=== PATIENT | female | born 1965 | race Caucasian/White ===

== ENCOUNTER → 2022-10-24 09:30 | Outpatient (BNVA) | payer MEDICARE, MEDICAID, SELFPAY | PROVIDERS: PCP Family Medicine; Visit Provider Podiatrist Foot & Ankle Surgery | DX: G57.62 Lesion of plantar nerve, left lower limb | CPT/HCPCS: 73630; 99203 ==

== ENCOUNTER → 2022-11-02 09:18 | Outpatient (BNVA) | payer MEDICARE, MEDICAID, SELFPAY | PROVIDERS: PCP Family Medicine; Referring Provider Family Medicine; Visit Provider Internal Medicine Rheumatology | DX: Z79.899 Other long term (current) drug therapy (principal); M19.90 Unspecified osteoarthritis, unspecified site; Z11.59 Encounter for screening for other viral diseases; M06.9 Rheumatoid arthritis, unspecified; Z71.85 Encounter for immunization safety counseling | CPT/HCPCS: 80076; 82306; 82565; 85025; 86200; 86431; 86704; 86803; 87340; 87522; 99204 ==

== ENCOUNTER 2022-11-23 13:09 | Outpatient (CLI) | payer MEDICARE, MEDICAID, SELFPAY ==
--- NOTE | 2022-11-23 13:45 | MR_ITS ---
WS: [id number] MRI LEFT FOOT WITHOUT CONTRAST. COMPARISON: None Multiplanar, multisequence imaging is performed without contrast. On the axial proton density sequence there is an intermediate soft tissue mass centered between the t hird and fourth distal metatarsals. This is a dumbbell shaped mass extending into the plantar and jason ehsan surfaces of the soft tissues. Mass extends along the plantar surface of the foot posterior to the third metatarsal head. Intermediate and slightly increased signal on the T2 fat-saturated sequences. Mass is causing widening between the third and fourth metatarsal heads. Length of the mass is 3.7 cm and transversely by 1.6 cm. No marrow edema or fracture. There are small cortical erosions noted in the midfoot predominantly inv olving the proximal third metatarsal and the cuboid. Consistent with history of prior rheumatoid arth ritis. No erosions in the metatarsal heads. IMPRESSION: 1. Lobulated dumbbell shaped mass between the third and fourth metatarsal heads measures 1.6 x 3.7 cm . 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 Typically Simon neuromas are not this large. There are rare cases of marked enlargement. 2. Splaying of the third and fourth metatarsal heads due to this mass. 3. Small erosions in the proximal third metatarsal and the cuboid. Consistent with a history of rheum atoid arthritis.
== END 2022-11-23 13:10 | disposition home or self-care (01) ==
PROVIDERS: PCP Family Medicine; Visit Provider Podiatrist Foot & Ankle Surgery
DX: G57.62 Lesion of plantar nerve, left lower limb (principal)
CPT/HCPCS: 73718

== ENCOUNTER → 2022-11-27 14:56 | Outpatient (BNVA) | payer MEDICARE, MEDICAID, SELFPAY | PROVIDERS: PCP Family Medicine; Visit Provider Podiatrist Foot & Ankle Surgery | DX: G57.62 Lesion of plantar nerve, left lower limb | CPT/HCPCS: 99214 ==

== ENCOUNTER 2022-12-06 06:52 | Day surgery (SDC) | payer MEDICARE, MEDICAID, SELFPAY ==
[2022-12-06 07:14] VITALS: BP 123/71; PULSE 93; RESP 20; TEMP 36.1; O2SAT 96; BMI 24.9
[2022-12-06] MEDS: sodium chloride 0.9% 1,000 ML 30 ML IV (07:24)
[2022-12-06] MEDS: gabapentin 300 mg Capsule PO (07:27)
[2022-12-06] MEDS: CELEcoxib 200 mg Capsule 400 MG PO (07:27)
--- NOTE | 2022-12-06 08:22 | ANES.PREANE2 ---
Pre-Anesthetic Assessment Height/Weight: Height 1.73 m Weight 74.389 kg Temp Pulse Resp BP Pulse Ox O2 Del Method 97 F L 93 20 H 123/71 96 Room Air 12/06/22 07:14 12/06/22 07:14 12/06/22 07:14 12/06/22 07:14 12/06/22 07:14 12/06/22 07:14 Preop Diagnosis: Simon's Neuroma Left Foot Operation Date: 12/06/22 07:00 Proposed Procedures p ?Left foot third interspace neuroma excision 23985,G57.62(Left) - Gilberto Garcia DPM Familial anesthetic complications: None Was Beta Josiah taken within 24 hours: N/A Was Clonidine taken within 24 hours: N/A Last intake: Intake Last Liquid Date 12/05/22 Last Liquid Time 20:30 Last Solid Date 12/05/22 Last Solid Time 20:30 Social No alcohol and No tobacco Exam alert, oriented x 3, clear to auscultation bilaterally and regular rate & rhythm Airway Mallampati: Class II Dentition: full Pulmonary Sleep Apnea GI gastroparesis no current nausea or feeling of gastric fullness, states feels empty Metabolic Diabetes Mellitus [facility] Rheumatoid Arthritis Anesthetic Plan ASA status: 3 Anesthesia: MAC Risk of > 500 ml blood loss (7ml/kg in children): No Medications/Allergies Home Medications Medication Instructions Recorded Confirmed Last Taken Type dextroamphetamine-amphetamine 30 30 mg PO BID 11/02/22 12/06/22 12/05/22 History mg tablet (Adderall) gabapentin 300 mg capsule 300 mg PO TID 11/02/22 12/06/22 12/05/22 History leflunomide 20 mg tablet 20 mg PO DAILY 11/02/22 12/06/22 12/05/22 History metoclopramide HCl 5 mg tablet 5 mg PO DAILY 11/02/22 12/06/22 12/05/22 History sucralfate 1 gram tablet 1 g PO .before meals 11/02/22 12/06/22 12/05/22 History trazodone 100 mg tablet 200 mg PO .HS 11/02/22 12/06/22 12/05/22 History insulin syringes (disposable) 1 mL #25 ea 11/16/22 11/27/22 Unknown Rx methotrexate sodium 25 mg/mL 15 mg (0.6 mL) SUBCUT .Q7days #10 11/16/22 12/05/22 12/01/22 Rx injection solution mL aripiprazole 400 mg intramuscular See Rx Instructions .Route .COMPLEX 12/05/22 12/06/22 11/22/22 History suspension,extended release (Abilify Maintena) esomeprazole magnesium 20 mg 20 mg PO DAILY 12/05/22 12/06/22 12/05/22 History capsule,delayed release paroxetine HCl 20 mg tablet 20 mg PO DAILY 12/05/22 12/06/22 12/05/22 History Allergies Allergy/AdvReac Type Severity Reaction Status Date / Time acetaminophen Allergy Unknown Unknown Verified 12/05/22 10:36 ciprofloxacin [From Cipro] Allergy Unknown Unknown Verified 12/05/22 10:36 Penicillins Allergy Unknown Unknown Verified 12/05/22 10:36 pistachio nut Allergy Unknown Unknown Verified 12/05/22 10:36 Current Medications Generic Name Dose Route Start Last Admin Trade Name Freq PRN Reason Stop Dose Admin Sodium Chloride 1,000 mls @ 30 mls/hr 12/06/22 07:15 12/06/22 07:24 Sodium Chloride 0.9% IV 12/07/22 07:14 30 mls/hr .Q24H RAJAT Administration PFSH Anesthesia Medical History Adult ADHD Anxiety Chronic lower back pain Chronic post-traumatic stress disorder (PTSD) DDD (degenerative disc disease) Depression Dyspnea Gastroparesis High risk medication use History of heart valve disorder Immunization counseling Simon's neuroma of left foot Osteoarthritis Raynauds disease Rheumatoid arthritis Sleep apnea Tubal ligation evaluation Surgical History History of artificial heart valve History of delivery History of esophagogastroduodenoscopy (EGD) History of hysterectomy with bilateral oophorectomy Family History Other CAD (coronary artery disease) Cancer Diabetes Family history of premature coronary artery disease Hypertension Lung disease Lupus Rheumatoid arthritis Denies family history of Stroke Data Anesthesia Cardiac Studies: No Data to Display
--- NOTE | 2022-12-06 08:38 | W.PM.OPSUD ---
Surgery/Procedure H&P Update DATE OF PROCEDURE: December 06, 2022 DATE H&P PERFORMED: 11/27/22 CHANGES TO PREVIOUS DOCUMENTATION: No changes PREOP DIAGNOSIS: Simon's Neuroma Left Foot PLANNED PROCEDURE: Operation Date: 12/06/22 07:00 Proposed Procedures p ?Left foot third interspace neuroma excision 93245,G57.62(Left) - iGlberto Garcia DPM
[2022-12-06] MEDS: ceFAZolin 2,000 MG in sodium chloride 0.9% (plus) 50 ML 100 MG IV (09:02)
[2022-12-06] MEDS: BUPivacaine 0.5% INJ 30 mL INJECTION (09:04)
[2022-12-06 09:45] VITALS: BP 83/60; PULSE 73; RESP 18; TEMP 36.1; O2SAT 96
--- NOTE | 2022-12-06 09:45 | W.PM.BPON ---
Date of procedure: 12/06/22 Surgeon name: Laverne MarkPGustavo Tool Lapper Hand(s) name(s): None Procedure(s) performed: Left foot 3rd interspace neuroma excision Description of findings: Large neuroma left 3rd interspace Estimated blood loss: 10cc Specimen(s) removed: Neuroma left foot 3rd interspace sent to pathology Post-operative diagnosis: Neuroma left foot 3rd interspace
--- NOTE | 2022-12-06 09:49 | P.OP_ITS ---
Operative Report Date of procedure: December 06, 2022 Pre-op diagnosis: Left foot 3rd interspace neuroma Post-op diagnosis: Same Post-op findings: Whitish, yellowish discolored soft tissue mass from left third interspace measuring 2.0 x 2.5 cm that is longest and widest girth well-circumscribed no evidence of malignancy Procedure done: Left foot third interspace neuroma excision CPT 64674 Implants: None Specimens removed/disposition: Left foot third interspace neuroma sent to surgical pathology Surgeon: Gilberto Garcia DPM Estimated blood loss: Less than 10 cc Complications: None Findings: See above Procedure: Patient is a 57-year-old female that has a history of left foot third interspace neuroma. The patient has had the aforementioned chief complaint for some time. Conservative treatment measures have been attempted and the patient has opted for surgical intervention at this time. A lengthy discussion regarding the procedure, including risks and complications has been had with the patient and is noted in the recent clinic note. Written and verbal consent have been obtained. All patient questions have been answered to the patient?s satisfaction. No written or verbal guarantees have been given or implied. The patient has been NPO since midnight. The history has been reviewed and the history and physical is current. The signed consent was confirmed and placed in the patient chart. Patient imaging has been reviewed and is consistent with the diagnosis. Under mild sedation, the patient was brought into the operating room and placed on the table in the supine position. IV antibiotics were given by the anesthesia team as preoperative surgical prophylaxis. IV sedation was then performed by the anesthesiateam. A pneumatic tourniquet was then placed about the left ankle. The operative extremity was then prepped and draped in the usual fashion. The extremity was then elevated and exsanguinated before the tourniquet was inflated to 250 mmHg. After inflation, the following procedure was then performed. Attention was directed to the left foot overlying the third intermetatarsal space where a 3 cm incision was made using #15 blade. Blunt dissection was carried down through subcutaneous and superficial fascia to the level of a whitish, yellowish discolored soft tissue mass consistent with neuroma. Dissection was carried out circumferentially around the mass to expose it in its entirety. It was then transected as proximally as possible before the distal ends were traced and transected. This was then passed from the operative field. It was noted to measure 2.0 x 2.5 cm at its longest and widest girth. The site was evaluated and no remaining soft tissue mass was visualized. The site was irrigated with copious months of sterile saline before attention was directed to closure. Skin was closed with 4-0 nylon in horizontal mattress fashion. The tourniquet was let down and good hyperemic response was noted all digits of the left foot. The site was then dressed with Xeroform, 4 x 4 gauze, Kerlix, Coban The patient tolerated the procedure and anesthesia well and without complication. The patient was transported from the operating room to the recover y room with vital signs stable and vascular status intact to all digits of the left foot. The patient was given both written and verbal instructions to remain weightbearing as tolerated to the operative extremity, to keep dressings/splint clean, dry and intact and to take pain medication as directed. The patient will follow-up in the outpatient setting at their scheduled appointment. The patient was discharged with my personal number and was instructed to call if any questions or issues should arise. They were discharged home once anesthesia criteria was met.
[2022-12-06 09:50] VITALS: BP 91/55; PULSE 72; RESP 18; O2SAT 95
[2022-12-06 10:02] VITALS: BP 90/66; PULSE 71; RESP 18; TEMP 36.1; O2SAT 96
[2022-12-06 10:04] VITALS: BP 108/70; PULSE 78; RESP 16; TEMP 36.1; O2SAT 94
--- NOTE | 2022-12-06 10:10 | ANE.PACU2 ---
Inpatient post-anesthesia follow up: Airway intact: Yes Vital signs: Temperature 97.0 F Pulse Rate 78 Respiratory Rate 18 Blood Pressure 122/83 Pulse Oximetry 95 Oxygen Delivery Me thod Room Air Oxygen Flow Rate Fraction of Inspir ed Oxygen Hydration adequate: Yes Nausea and vomiting: No Pain level: 1 Mental status: Baseline
[2022-12-06] MEDS: TRAMadol 50 mg Tablet PO (10:19)
[2022-12-06 10:20] VITALS: BP 122/83; PULSE 78; RESP 18; O2SAT 95
== END 2022-12-06 10:34 | disposition home or self-care (01) ==
PROVIDERS: PCP Family Medicine; Visit Provider Podiatrist Foot & Ankle Surgery
PROC: (CPT 28080; principal; 2022-12-06 07:00)
DX: G57.62 Lesion of plantar nerve, left lower limb (principal); E11.9 Type 2 diabetes mellitus without complications; G47.30 Sleep apnea, unspecified; M06.9 Rheumatoid arthritis, unspecified; M19.90 Unspecified osteoarthritis, unspecified site
CPT/HCPCS: 28080; 88304; J0690; J2371; J2704; J3010; J3490; J7030; L3260

== ENCOUNTER → 2022-12-12 11:04 | Outpatient (BNVA) | payer MEDICARE, MEDICAID, SELFPAY | PROVIDERS: PCP Family Medicine; Visit Provider Podiatrist Foot & Ankle Surgery | DX: Z98.890 Other specified postprocedural states (principal); G57.62 Lesion of plantar nerve, left lower limb; M06.9 Rheumatoid arthritis, unspecified | CPT/HCPCS: 36415; 80076; 82565; 85025; 86140; 99024; 99214 ==

== ENCOUNTER → 2022-12-20 14:40 | Outpatient (BNVA) | payer MEDICARE, MEDICAID, SELFPAY | PROVIDERS: PCP Family Medicine; Visit Provider Podiatrist Foot & Ankle Surgery | DX: Z98.890 Other specified postprocedural states (principal); G57.62 Lesion of plantar nerve, left lower limb; M79.672 Pain in left foot | CPT/HCPCS: 99024 ==

== ENCOUNTER 2024-04-03 14:03 | Oncology outpatient (recurring) (ONCR) | payer OTHER, MEDICAID, SELFPAY ==
[2024-04-03 15:20] LABS: Basophils % 0.5 %; Eosinophils # 0.2 10^3/uL (0.0-0.8); Eosinophils % 2.2 %; Hematocrit 31.5 % (36-47); Lymphocytes # 1.8 10^3/uL (0.8-4.8); Lymphocytes % 21.5 %; Mean Corpuscular HGB Conc 32.4 g/dL (30-55); Mean Corpuscular Hemoglobin 28.6 pg (27-33); Mean Corpuscular Volume 88.2 fl (85-98); Mean Platelet Volume 8.7 fL (7.4-10.4); Monocytes # 0.4 10^3/uL (0.2-0.9); Monocytes % 4.5 %; Neutrophils % 70.9 %; Nucleated Red Blood Cells % 0 %; Platelet Count 283 10^3/cmm (157-399); Red Blood Count 3.57 10^6/uL (3.85-5.65); Red Cell Distribution Width 13.2 % (12.1-15.1); White Blood Count 8.31 10^3/uL (3.29-11.43)
[2024-04-03 15:40] LABS: Alanine Aminotransferase 17 U/L (0-33); Albumin Level 3.3 g/dL (3.5-5.2); Alkaline Phosphatase 115 U/L (35-105); Anion Gap 14.2 (5-19); Aspartate Amino Transferase 21 U/L (0-32); Blood Urea Nitrogen 11 mg/dL (8-23); Calcium 8.6 mg/dL (8.5-10.5); Carbon Dioxide 25 mmol/L (22-29); Chloride 102 mmol/L (98-107); Creatine Phosphokinase 178 U/L (26-192); Glucose 103 mg/dL (65-115); Osmolality Calculated 284 mOsm/kg (285-295); Potassium 4.2 mmol/L (3.5-5.1); Sodium 137 mmol/L (136-145); Total Bilirubin 0.2 mg/dL (0.15-1.2); Total Protein 6.3 g/dL (6.6-8.7)
== END 2024-04-04 23:59 | disposition home or self-care (01) ==
LOC: ONCMED 14:08
PROVIDERS: PCP Family Medicine; Visit Provider Orthopaedic Surgery
DX: T84.50XA Infection and inflammatory reaction due to unspecified internal joint prosthesis, initial encounter (principal); X58.XXXA Exposure to other specified factors, initial encounter
CPT/HCPCS: 36592; 80053; 82550; 85025

== ENCOUNTER 2024-04-28 14:41 | Oncology outpatient (recurring) (ONCR) | payer OTHER, MEDICAID, SELFPAY ==
[2024-04-10 14:41] LABS: Basophils % 0.5 %; Eosinophils # 0.2 10^3/uL (0.0-0.8); Eosinophils % 1.8 %; Lymphocytes # 2.1 10^3/uL (0.8-4.8); Mean Corpuscular HGB Conc 31.4 g/dL (30-55); Mean Corpuscular Hemoglobin 27.4 pg (27-33); Mean Corpuscular Volume 87.5 fl (85-98); Mean Platelet Volume 8.6 fL (7.4-10.4); Monocytes # 0.5 10^3/uL (0.2-0.9); Monocytes % 5.5 %; Neutrophils # 5.68 10^3/uL (1.8-7.7); Nucleated Red Blood Cells % 0 %; Platelet Count 457 10^3/cmm (157-399); Red Blood Count 4.23 10^6/uL (3.85-5.65); Red Cell Distribution Width 14.1 % (12.1-15.1); White Blood Count 8.48 10^3/uL (3.29-11.43)
[2024-04-10 15:02] LABS: Alanine Aminotransferase 12 U/L (0-33); Albumin Level 3.8 g/dL (3.5-5.2); Alkaline Phosphatase 127 U/L (35-105); Anion Gap 17.3 (5-19); Aspartate Amino Transferase 16 U/L (0-32); Blood Urea Nitrogen 11 mg/dL (8-23); Carbon Dioxide 24 mmol/L (22-29); Chloride 102 mmol/L (98-107); Creatine Phosphokinase 151 U/L (26-192); Globulin 3.6 g/dL (1.3-4.6); Glomerular Filtration Rate 85.4 mL/min (90-130); Glucose 109 mg/dL (65-115); Osmolality Calculated 290 mOsm/kg (285-295); Potassium 3.3 mmol/L (3.5-5.1); Sodium 140 mmol/L (136-145); Total Bilirubin 0.2 mg/dL (0.15-1.2); Total Protein 7.4 g/dL (6.6-8.7)
[2024-04-17 14:40] LABS: Basophils % 0.7 %; Eosinophils # 0.1 10^3/uL (0.0-0.8); Hematocrit 36.2 % (36-47); Lymphocytes # 1.7 10^3/uL (0.8-4.8); Lymphocytes % 30.6 %; Mean Corpuscular Volume 87.2 fl (85-98); Mean Platelet Volume 8.9 fL (7.4-10.4); Monocytes # 0.4 10^3/uL (0.2-0.9); Monocytes % 7.2 %; Neutrophils # 3.21 10^3/uL (1.8-7.7); Neutrophils % 59.3 %; Nucleated Red Blood Cells % 0 %; Platelet Count 345 10^3/cmm (157-399); Red Blood Count 4.15 10^6/uL (3.85-5.65); Red Cell Distribution Width 13.6 % (12.1-15.1); White Blood Count 5.42 10^3/uL (3.29-11.43)
[2024-04-17 14:57] LABS: Alanine Aminotransferase 14 U/L (0-33); Albumin Level 3.7 g/dL (3.5-5.2); Alkaline Phosphatase 119 U/L (35-105); Anion Gap 15.8 (5-19); Aspartate Amino Transferase 22 U/L (0-32); Blood Urea Nitrogen 15 mg/dL (8-23); C Reactive Protein 5.5 mg/L (0.0-4.9); Calcium 9.3 mg/dL (8.5-10.5); Carbon Dioxide 24 mmol/L (22-29); Chloride 100 mmol/L (98-107); Creatine Phosphokinase 102 U/L (26-192); Globulin 3.4 g/dL (1.3-4.6); Glomerular Filtration Rate 85.4 mL/min (90-130); Glucose 101 mg/dL (65-115); Osmolality Calculated 283 mOsm/kg (285-295); Potassium 3.8 mmol/L (3.5-5.1); Sodium 136 mmol/L (136-145); Total Bilirubin 0.2 mg/dL (0.15-1.2); Total Protein 7.1 g/dL (6.6-8.7)
[2024-04-17 15:14] LABS: Erythrocyte Sedimentation Rate 48 mm/hr (0-15)
[2024-04-28 15:31] LABS: Basophils % 0.7 %; Eosinophils # 0.1 10^3/uL (0.0-0.8); Eosinophils % 2.5 %; Hematocrit 36.4 % (36-47); Lymphocytes # 2.1 10^3/uL (0.8-4.8); Lymphocytes % 37.8 %; Mean Corpuscular HGB Conc 32.4 g/dL (30-55); Mean Corpuscular Hemoglobin 28.5 pg (27-33); Mean Corpuscular Volume 87.9 fl (85-98); Mean Platelet Volume 8.7 fL (7.4-10.4); Monocytes # 0.4 10^3/uL (0.2-0.9); Monocytes % 7.6 %; Neutrophils # 2.85 10^3/uL (1.8-7.7); Neutrophils % 51.2 %; Nucleated Red Blood Cells % 0 %; Platelet Count 323 10^3/cmm (157-399); Red Blood Count 4.14 10^6/uL (3.85-5.65); Red Cell Distribution Width 13.8 % (12.1-15.1); White Blood Count 5.56 10^3/uL (3.29-11.43)
[2024-04-28 15:54] LABS: Alanine Aminotransferase 17 U/L (0-33); Albumin Level 3.8 g/dL (3.5-5.2); Alkaline Phosphatase 164 U/L (35-105); Aspartate Amino Transferase 19 U/L (0-32); Blood Urea Nitrogen 10 mg/dL (8-23); Calcium 8.9 mg/dL (8.5-10.5); Carbon Dioxide 23 mmol/L (22-29); Chloride 106 mmol/L (98-107); Creatine Phosphokinase 244 U/L (26-192); Globulin 3.4 g/dL (1.3-4.6); Glucose 104 mg/dL (65-115); Osmolality Calculated 291 mOsm/kg (285-295); Sodium 141 mmol/L (136-145); Total Bilirubin 0.2 mg/dL (0.15-1.2); Total Protein 7.2 g/dL (6.6-8.7)
== END 2024-05-02 23:59 | disposition home or self-care (01) ==
PROVIDERS: PCP Family Medicine; Visit Provider Orthopaedic Surgery
DX: T84.50XS Infection and inflammatory reaction due to unspecified internal joint prosthesis, sequela; X58.XXXS Exposure to other specified factors, sequela; Z53.9 Procedure and treatment not carried out, unspecified reason
CPT/HCPCS: 36592; 80053; 82550; 85025; 85651; 86140

== ENCOUNTER 2024-05-29 14:32 | Oncology outpatient (recurring) (ONCR) | payer OTHER, MEDICAID, SELFPAY ==
[2024-05-05 13:34] LABS: Basophils # 0.1 10^3/uL (0.0-0.1); Basophils % 0.8 %; Eosinophils # 0.1 10^3/uL (0.0-0.8); Eosinophils % 2.2 %; Hematocrit 38.7 % (36-47); Lymphocytes # 1.7 10^3/uL (0.8-4.8); Lymphocytes % 26.9 %; Mean Corpuscular HGB Conc 31.5 g/dL (30-55); Mean Corpuscular Hemoglobin 27.9 pg (27-33); Mean Corpuscular Volume 88.6 fl (85-98); Mean Platelet Volume 8.7 fL (7.4-10.4); Monocytes # 0.5 10^3/uL (0.2-0.9); Monocytes % 7.2 %; Neutrophils # 3.93 10^3/uL (1.8-7.7); Neutrophils % 62.6 %; Nucleated Red Blood Cells % 0 %; Platelet Count 350 10^3/cmm (157-399); Red Blood Count 4.37 10^6/uL (3.85-5.65); Red Cell Distribution Width 14.5 % (12.1-15.1); White Blood Count 6.28 10^3/uL (3.29-11.43)
[2024-05-05 13:48] LABS: Alanine Aminotransferase 13 U/L (0-33); Albumin Level 3.8 g/dL (3.5-5.2); Alkaline Phosphatase 146 U/L (35-105); Anion Gap 13.8 (5-19); Aspartate Amino Transferase 25 U/L (0-32); Blood Urea Nitrogen 11 mg/dL (8-23); Calcium 9.4 mg/dL (8.5-10.5); Carbon Dioxide 25 mmol/L (22-29); Chloride 102 mmol/L (98-107); Creatine Phosphokinase 235 U/L (26-192); Globulin 3.5 g/dL (1.3-4.6); Glomerular Filtration Rate 73.2 mL/min (90-130); Glucose 97 mg/dL (65-115); Osmolality Calculated 283 mOsm/kg (285-295); Potassium 3.8 mmol/L (3.5-5.1); Sodium 137 mmol/L (136-145); Total Bilirubin 0.2 mg/dL (0.15-1.2); Total Protein 7.3 g/dL (6.6-8.7)
[2024-05-12 16:38] LABS: Basophils % 0.7 %; Eosinophils # 0.1 10^3/uL (0.0-0.8); Eosinophils % 1.8 %; Hematocrit 35.8 % (36-47); Lymphocytes % 34.3 %; Mean Corpuscular HGB Conc 31.8 g/dL (30-55); Mean Corpuscular Hemoglobin 27.8 pg (27-33); Mean Corpuscular Volume 87.3 fl (85-98); Mean Platelet Volume 8.9 fL (7.4-10.4); Monocytes # 0.4 10^3/uL (0.2-0.9); Monocytes % 5.9 %; Neutrophils # 3.39 10^3/uL (1.8-7.7); Nucleated Red Blood Cells % 0 %; Platelet Count 365 10^3/cmm (157-399); Red Cell Distribution Width 13.9 % (12.1-15.1); White Blood Count 5.95 10^3/uL (3.29-11.43)
[2024-05-12 16:53] LABS: Erythrocyte Sedimentation Rate 32 mm/hr (0-15)
[2024-05-12 16:59] LABS: Alanine Aminotransferase 17 U/L (0-33); Alkaline Phosphatase 128 U/L (35-105); Anion Gap 15.1 (5-19); Aspartate Amino Transferase 21 U/L (0-32); Blood Urea Nitrogen 17 mg/dL (8-23); C Reactive Protein 4.2 mg/L (0.0-4.9); Calcium 9.1 mg/dL (8.5-10.5); Carbon Dioxide 25 mmol/L (22-29); Chloride 103 mmol/L (98-107); Globulin 2.8 g/dL (1.3-4.6); Glomerular Filtration Rate 85.4 mL/min (90-130); Glucose 91 mg/dL (65-115); Osmolality Calculated 289 mOsm/kg (285-295); Potassium 4.1 mmol/L (3.5-5.1); Sodium 139 mmol/L (136-145); Total Bilirubin 0.2 mg/dL (0.15-1.2); Total Protein 6.8 g/dL (6.6-8.7)
[2024-05-13 09:52] LABS: Creatine Phosphokinase 340 U/L (26-192)
[2024-05-29 16:02] LABS: Basophils # 0.1 10^3/uL (0.0-0.1); Basophils % 0.8 %; Eosinophils # 0.1 10^3/uL (0.0-0.8); Eosinophils % 2.1 %; Hematocrit 35.2 % (36-47); Lymphocytes # 1.9 10^3/uL (0.8-4.8); Lymphocytes % 30.6 %; Mean Corpuscular HGB Conc 31.8 g/dL (30-55); Mean Corpuscular Hemoglobin 28.2 pg (27-33); Mean Corpuscular Volume 88.7 fl (85-98); Mean Platelet Volume 9.4 fL (7.4-10.4); Monocytes # 0.4 10^3/uL (0.2-0.9); Monocytes % 6.6 %; Neutrophils # 3.78 10^3/uL (1.8-7.7); Neutrophils % 59.7 %; Nucleated Red Blood Cells % 0 %; Platelet Count 320 10^3/cmm (157-399); Red Blood Count 3.97 10^6/uL (3.85-5.65); Red Cell Distribution Width 14.2 % (12.1-15.1); White Blood Count 6.33 10^3/uL (3.29-11.43)
[2024-05-29 16:11] LABS: Erythrocyte Sedimentation Rate 29 mm/hr (0-15)
[2024-05-29 16:21] LABS: Alanine Aminotransferase 17 U/L (0-33); Albumin Level 3.7 g/dL (3.5-5.2); Alkaline Phosphatase 130 U/L (35-105); Anion Gap 16.7 (5-19); Aspartate Amino Transferase 22 U/L (0-32); Blood Urea Nitrogen 12 mg/dL (8-23); C Reactive Protein 12.1 mg/L (0.0-4.9); Calcium 9.2 mg/dL (8.5-10.5); Carbon Dioxide 22 mmol/L (22-29); Chloride 105 mmol/L (98-107); Globulin 2.9 g/dL (1.3-4.6); Glomerular Filtration Rate 85.4 mL/min (90-130); Glucose 120 mg/dL (65-115); Osmolality Calculated 291 mOsm/kg (285-295); Potassium 3.7 mmol/L (3.5-5.1); Sodium 140 mmol/L (136-145); Total Bilirubin 0.2 mg/dL (0.15-1.2); Total Protein 6.6 g/dL (6.6-8.7)
== END 2024-06-02 23:59 | disposition home or self-care (01) ==
PROVIDERS: PCP Family Medicine; Visit Provider Orthopaedic Surgery
DX: Z53.9 Procedure and treatment not carried out, unspecified reason; T84.59XA Infection and inflammatory reaction due to other internal joint prosthesis, initial encounter
CPT/HCPCS: 36592; 80053; 82550; 85025; 85651; 86140